=== PATIENT | male | born 2000 | race Caucasian/White ===

== ENCOUNTER 2023-12-24 12:49 | Emergency (ER) | payer MEDICAID ==
[~2023-12-24] VITALS: Ht 177.8 cm; Wt 65.8 kg
[2023-12-24 15:23] VITALS: BP 134/80; PULSE 78; RESP 16; TEMP 97.8; O2SAT 99
== END 2023-12-24 15:24 | disposition home or self-care (01) ==
LOC: ER 12:49
DX: M25.521 Pain in right elbow (principal)
CPT/HCPCS: 73080; 99283

== ENCOUNTER 2025-01-13 14:06 | Emergency (ER) | payer MEDICAID ==
[~2025-01-13] VITALS: Ht 175.3 cm; Wt 80.0 kg
[2025-01-13 14:13] VITALS: BP 117/76; PULSE 78; TEMP 96.9; O2SAT 99
[2025-01-13 14:37] LABS: LEUKOCYTE ESTERASE ,URINE NEGATIVE (Neg); NITRITES, URINE NEGATIVE (Neg); OCCULT BLOOD,URINE NEGATIVE (Neg)
[2025-01-13 14:44] LABS: UA COLLECTION TYPE CLN CATCH MIDSTREAM
--- NOTE | 2025-01-13 15:10 | Physician Documentation ---
History of Present Illness Chief Complaint: Abdominal Pain Stated Complaint: ABD PAIN Time Seen by MD: 14:24 Source: patient Mode of Arrival: POV Exam Limitations: no limitations HPI 24-year-old male experiencing generalized epigastric but also radiating to the left side at times and the right side at times abdominal pain he associates it with out eating. He does not believe that the pain starts with eating. No nausea or vomiting. Patient is concerned for kidneys as well as testicular pain with STI history recent treatment at [facility]. Patient states that he has some blotching to his penis and feels like he needs to be evaluated more. Medication Reconciliation Allergies: Coded Allergies: No Known Allergies (Unverified , 01/13/25) Past Medical History Past Medical History: No Pertinent History Past Surgical History: noncontributory Lives with: Alone Lives In: Home Occupation: student Review of Systems All Other Systems at this time: Reviewed and Negative Gastrointestinal: Reports: see HPI Male Genitalia: Reports: see HPI Physical Exam Vital Signs: RN Vital Signs have been reviewed: Yes, Temperature: 96.9, Source: Temporal, Heart Rate: 78, Respiratory Rate: 18, BP: 117/76, Pulse Oximetry: 99, Weight: 80.000 Oxygen Flow Rate: 0 Physical Exam General: Alert, no apparent distress. HEENT: moist mucous membranes. Neck: Full range of motion. Respiratory: No respiratory distress speaking in full sentences Chest: No accessory muscle use. Cardiovascular: Appears well perfused Gastrointestinal: Mild epigastric tenderness with palpation no CVA tenderness good bowel sounds Neurologic: Oriented x4. Psychiatric: Normal mood and affect. Skin: Normal color, warm and dry. No edema, no ecchymosis. Progress Results/Orders Results/Orders Orders - ESTELITA GALVEZ NP Cbc/Diff (01/13/25 14:22) Lipase (01/13/25 14:22) Chlam/Gc Amp Ur (01/13/25 14:22) Hsv Culture And Typing (01/13/25 14:22) Ultrasound Of Abdomen (01/13/25 14:22) Us Testic/W/Duplex (01/13/25 14:53) Completed Orders - ESTELITA GALVEZ NP Urinalysis, Cult If Indicated (01/13/25 14:22) Vital Signs 01/13/25 14:13 Temp 96.9 Pulse 78 Resp 18 B/P (MAP) 117/76 Pulse Ox 99 O2 Flow Rate 0 Laboratory Tests Test 01/13/25 14:22 Urine Specimen Description Cln catch midstream Urine Color Yellow Urine Clarity Clear Urine pH 7.0 Urine Specific [place] 1.015 Urine Protein Negative Urine Glucose (UA) Negative Urine Ketones Negative Urine Occult Blood Negative Urine Nitrite Negative Urine Bilirubin Negative Urine Urobilinogen 0.2 Urine Leukocyte Esterase Negative Urine Culture Indicated Not ind Volume Urine Centrifuged 10 ml Urine Comment Medical Decision Making Findings Due to the continuous epigastric pain but also radiating to the left side associated with eating CBC BMP and lipase have been ordered as well as an ultras ound of both his testicles and his upper abdomen. Patient will be tested for gonorrhea and chlamydia as well as treated prior to departure. Testicular ultrasound was unremarkable except for bilateral hydrocele the abdominal ultrasound shows a nonobstructing stone on the left kidney otherwise unremarkable. Labs and vitals reassuring Differential Dx:Considerations: Include: Cholangitis, Cholelithasis, Constipation, Gastritis/PUD, Gastroenteritis, Hernia, Pancreatitis Departure Time of Disposition: 15:44 Disposition: HOME / SELF CARE / HOMELESS Impression: Primary Impression: Hydrocele in adult Additional Impression: Abdominal pain Condition: Stable Discharge Instructions: Abdominal Pain (Nonspecific) Additional Instructions: Fluid surrounding the testicles which could be traumatic or infective. Follow up with primary care this fluid does go away on its own over time. Your abdominal ultrasound was unremarkable for any significant findings this could be musculoskeletal from activities and sports such as wrestling. Referrals: NO PRIMARY CARE PROVIDER (PCP) Prescriptions Metronidazole* (Flagyl*) 500 Mg Tablet 1 TAB PO Q12H for 7 Days, #14 TAB Prov: ESTELITA GALVEZ NP 01/13/25 Education Educated: Patient Educated regarding: diagnosis, treatment, need for follow up Signature Scribe Signature: no Scribe Attestation: The note accurately reflects work and decisions made by me.Estelita Galvez - CHRISTIAN 01/13/25 15:10 ESTELITA GALVEZ NP Jan 13, 2025 15:10
[2025-01-13 15:13] LABS: MEAN PLATELET VOLUME 8.9 FL (7.4-10.4); RED CELL DISTRIBUTION WIDTH 13.0 % (11.5-14.5)
[2025-01-13 15:40] VITALS: RESP 16
[2025-01-13] MEDS ORDERED: METR-159 PO (15:44)
[2025-01-13] MEDS: CefTRIAXone 500MG IM Kit w/LIDOcaine IM ONE (15:54)
--- NOTE | 2025-01-13 16:24 | RADIOLOGY REPORT ---
CLINICAL HISTORY: Upper left and right intermittent abdominal pain TECHNIQUE: Complete ultrasound exam of the abdomen was performed. COMPARISON: None FINDINGS: The liver is normal in echogenicity with no focal parenchymal abnormality. The liver measures 15.7 cm in length. The common duct is 2 mm. Gallbladder is normal without shadowing stone or tenderness. The pancreas is not seen. No ascites or fluid collection. The right kidney is 12 cm and the left kidney is 10.4 cm. No hydronephrosis, increased echogenicity, no shadowing stone. Is a 1.5 cm left renal cyst. Spleen is within normal limits. The aorta is not seen and the IVC is grossly patent. IMPRESSION: NO SIGNIFICANT SONOGRAPHIC ABNORMALITY OF THE ABDOMEN.
--- NOTE | 2025-01-13 16:47 | RADIOLOGY REPORT ---
ULTRASOUND SCROTUM CLINICAL INDICATION: STI history TECHNIQUE: High resolution scrotal ultrasound was performed with a linear transducer with duplex doppler and open claims representative images acquired. Color Doppler with spectral analysis was performed/attempted of the testes. COMPARISON: None FINDINGS: Right testicle: Normal in size, measuring 3.9 x 2.4 x 3.3 cm. The testicular parenchyma is homogeneous. No testicular mass. Normal intratesticular blood flow. The right epididymis appears normal. Small hydrocele. Left testicle: Normal in size, measuring 3.1 x 4.2 x 3.0 cm. The testicular parenchyma is homogeneous. No testicular mass. Normal intratesticular blood flow. The left epididymis appears normal. Small hydrocele. IMPRESSION: 1. Normal testicles without torsion. 2. Small bilateral hydroceles.
== END 2025-01-13 16:03 | disposition home or self-care (01) ==
LOC: ER 14:06
DX: N43.3 Hydrocele, unspecified (principal); Z60.2 Problems related to living alone
CPT/HCPCS: 36415; 76700; 76870; 81003; 83690; 85025; 87491; 87591; 93976; 96372; 99285; J0696